=== PATIENT | male | born 1975 | race Caucasian/White ===

== ENCOUNTER 2018-02-08 19:48 | Emergency (ER) | payer BC ==
[~2018-02-08] VITALS: Ht 182.9 cm; Wt 93.0 kg
[~2018-02-08 19:48] MED LIST: ALBU3IS INH; ALBU90OI INH; AZIT250 PO; DIAZ5 PO; ESZO2 PO; HYDACE5 PO; KETO30I IV; LEVO750 PO; OXYACE5T PO; PRED20 PO; PROM25 PO; PROM25S PR; RXOXYACE PO; SILD50TA PO
[2018-02-08] MEDS ORDERED: BUDE10.22 INH (20:19)
[2018-02-08] MEDS ORDERED: ALBU90OI61 INH (20:19)
== END 2018-02-08 20:38 | disposition home or self-care (01) ==
LOC: ER 19:48
DX: R07.0 Pain in throat (principal); H61.23 Impacted cerumen, bilateral; J45.909 Unspecified asthma, uncomplicated; F17.200 Nicotine dependence, unspecified, uncomplicated; Z79.51 Long term (current) use of inhaled steroids
CPT/HCPCS: 87081; 87430; 99283

== ENCOUNTER 2023-04-27 20:03 | Emergency (ER) | payer BC ==
[~2023-04-27] VITALS: Ht 182.9 cm; Wt 93.0 kg
[~2023-04-27 20:03] MED LIST changes: +ALBU90OI61 INH; +BUDE10.22 INH
[2023-04-27 20:10] VITALS: BP 124/79
[2023-04-27 20:34] LABS: BASOPHILS ABSOLUTE AUTO 0.03 K/mm3 (0.00-0.23); BASOPHILS PERCENT AUTO 0 % (0-2); EOSINOPHILS ABSOLUTE AUTO 0.03 K/mm3 (0.00-0.68); EOSINOPHILS PERCENT AUTO 0 % (0-6); Hematocrit 45.2 % (37.0-53.0); Hemoglobin 15.7 g/dL (13.5-17.5); IMMATURE GRAN ABSOLUTE AUTO 0.02 K/mm3 (0.00-0.10); IMMATURE GRAN PERCENT AUTO 0 % (0-1); LYMPHOCYTES ABSOLUTE AUTO 0.49 K/mm3 (0.84-5.20); LYMPHOCYTES PERCENT AUTO 7 % (21-46); MONOCYTES ABSOLUTE AUTO 0.72 K/mm3 (0.16-1.47); MONOCYTES PERCENT AUTO 11 % (4-13); Mean Corpuscular HGB 31.2 pg (26.0-34.0); Mean Corpuscular HGB Conc 34.7 g/dL (31.5-36.5); Mean Corpuscular Volume 90 fL (80-100); Mean Platelet Volume 11.2 fL (9.1-12.4); NEUTROPHILS ABSOLUTE AUTO 5.39 K/mm3 (1.96-9.15); NEUTROPHILS PERCENT AUTO 81 % (41-73); Platelet Count 158 K/mm3 (150-400); RDW Coefficient Variation 12.8 % (11.7-14.2); RDW Standard Deviation 42.4 fL (35.1-46.3); Red Blood Cell Count 5.03 M/mm3 (4.30-5.90); White Blood Cell Count 6.68 K/mm3 (4.00-11.30)
[2023-04-27 20:54] LABS: Albumin, Blood 3.7 g/dL (3.4-5.0); Bilirubin, Total 1.2 mg/dL (0.1-1.0); Bun/Creatinine Ratio 11.7 (12.0-20.0); Calcium, Blood 8.4 mg/dL (8.5-10.1); Creatinine, Blood 1.28 mg/dL (0.60-1.20); Globulin, Blood 3.8 g/dL (2.2-4.0); Potassium, Blood 3.8 mmol/L (3.5-5.5); Total Protein, Blood 7.5 g/dL (6.4-8.2)
[2023-04-28] MEDS ORDERED: DOXY100 PO (00:40)
== END 2023-04-28 01:20 | disposition home or self-care (01) ==
LOC: ER 20:03
PROVIDERS: Student in an Organized Health Care Education/Training Program
DX: J44.1 Chronic obstructive pulmonary disease with (acute) exacerbation (principal); F17.210 Nicotine dependence, cigarettes, uncomplicated; Z79.899 Other long term (current) drug therapy
CPT/HCPCS: 71046; 80053; 84484; 85025; 93005; 93010; 94640; 94664; 99284-25; A9270